=== PATIENT | female | born 1990 | race African-American/Black ===

== ENCOUNTER → 2018-07-17 | Outpatient (CLI) | payer BC, OTHER ==
[~2018-07-17] MED LIST: ANTIBIOTIC; MIRENA; NOHOMEMEDICATIONS; NORCO 5-325 TA1 EACH PO; PENICILLIN VK500 M1 PO; PREDNISONE 10 M10 MG PO; PREDNISONE50 MG PO
== END ==
LOC: ULTRA 07-16 09:52
DX: R10.2 Pelvic and perineal pain (principal); G89.29 Other chronic pain; Z97.5 Presence of (intrauterine) contraceptive device

== ENCOUNTER 2019-07-24 11:06 | Emergency (ER) | payer OTHER ==
[~2019-07-24] VITALS: Ht 160 cm; Wt 59.0 kg
[2019-07-24 11:07] VITALS: BP 147/89
[2019-07-24] MEDS ORDERED: NAPROSYN500 MG PO (11:34)
== END 2019-07-24 11:53 | disposition home or self-care (01) ==
LOC: ER 11:06
DX: S16.1XXA Strain of muscle, fascia and tendon at neck level, initial encounter (principal); S29.012A Strain of muscle and tendon of back wall of thorax, initial encounter; F17.210 Nicotine dependence, cigarettes, uncomplicated; V89.2XXA Person injured in unspecified motor-vehicle accident, traffic, initial encounter; Y93.89 Activity, other specified; Y92.89 Other specified places as the place of occurrence of the external cause; Y99.8 Other external cause status